=== PATIENT | male | born 1945 | race Caucasian/White ===

== ENCOUNTER 2017-06-27 15:31 | Emergency (ER) | payer MEDICARE ==
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
--- NOTE | 2017-06-27 15:54 | EKG ---
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 POSSIBLY ABNORMAL ECG RI6.01 No previous ECG available for comparison Electronically Signed On 06-28-2017 12:11:21 [employer] by Luke Fitzpatrick
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
[2017-06-27] MEDS ORDERED: HYDR-79 PO (16:26)
[2017-06-27 16:34] VITALS: BP 161/81
== END 2017-06-27 16:30 | disposition home or self-care (01) ==
LOC: ER 15:31
DX: S20.211A Contusion of right front wall of thorax, initial encounter (principal); E11.9 Type 2 diabetes mellitus without complications; I10 Essential (primary) hypertension; E78.00 Pure hypercholesterolemia, unspecified; Z87.442 Personal history of urinary calculi; V49.9XXA Car occupant (driver) (passenger) injured in unspecified traffic accident, initial encounter; Y93.89 Activity, other specified; Y99.8 Other external cause status; Y92.488 Other paved roadways as the place of occurrence of the external cause
CPT/HCPCS: 71046; 93005; 99284

== ENCOUNTER 2018-05-31 10:22 | Emergency (ER) | payer MEDICARE ==
[~2018-05-31] VITALS: Ht 175.3 cm; Wt 77.1 kg
[~2018-05-31 10:22] MED LIST: HYDR-1179 PO
--- NOTE | 2018-05-31 10:54 | RAD ---
FOOT RIGHT 3V History: Foot pain for one hour Comparison: None. Findings: 3 views of the right foot are submitted. There is minimally displaced, mostly horizontally oriented fracture of the proximal fifth metatarsal. This mass or calcification. There are dorsal and plantar calcaneal enthesophytes. Impression: 1. There is fracture of the proximal fifth metatarsal. Electronically signed by: Helder David MD (05/31/2018 10:50 AM) [id number]
[2018-05-31] MEDS ORDERED: ACET-704 PO (11:43)
--- NOTE | 2018-05-31 11:43 | PHYS DOC ---
Past History Past Medical History: Diabetes Past Surgical History: No Surgical History Smoking: Non-smoker Alcohol Use: Rarely Drug Use: None Adult General Chief Complaint Chief Complaint: FOOT INJURY PAIN [facility] HPI Patient is a 73 year old male who presents with injury to right foot. Patient states he was watching TV for a while and then he started to walk had numbness of his foot and lost his balance and twisted his right foot prior to arrival to ER without fall or other injuries. Patient denies current paresthesias or focal weakness and rated his pain as a mild pain. Review of Systems Review of Systems Constitutional: Denies fever or chills [] Eyes: Denies change in visual acuity, redness, or eye pain [] HENT: Denies nasal congestion or sore throat [] Respiratory: Denies cough or shortness of breath [] Cardiovascular: No additional information not addressed in HPI [] GI: Denies abdominal pain, nausea, vomiting, bloody stools or diarrhea [] : Denies dysuria or hematuria [] Musculoskeletal: Denies back pain, reports joint pain [] Integument: Denies rash or skin lesions [] Neurologic: Denies headache, focal weakness or sensory changes [] Endocrine: Denies polyuria or polydipsia [] All other systems were reviewed and found to be within normal limits, except as documented in this note. Allergies Allergies Allergies Coded Allergies Type Severity Reaction Last Updated Verified No Known Drug Allergies 08/06/13 No Physical Exam Physical Exam Constitutional: Well developed, well nourished, no acute distress, non-toxic appearance. [] HENT: Normocephalic, atraumatic Eyes: PERRLA, EOMI, conjunctiva normal, no discharge. [] Neck: Normal range of motion, no tenderness, supple, no stridor. [] Cardiovascular:Heart rate regular rhythm, no murmur [] Lungs & Thorax: Bilateral breath sounds clear to auscultation [] Skin: Warm, dry, no erythema, no rash. [] Back: No tenderness, no CVA tenderness. [] Extremities: Right foot without deformity, contusion and mild ecchymosis and tenderness in proximal fifth metatarsal area without focal neuro deficit Neurologic: Alert and oriented X 3, normal motor function, normal sensory function, no focal deficits noted. [] Psychologic: Affect normal, judgement normal, mood normal. [] Current Patient Data Vital Signs Vital Signs Date Time Temp Pulse Resp B/P (MAP) Pulse Ox O2 Delivery O2 Flow Rate FiO2 05/31/18 10:32 98.3 88 22 99 Room Air EKG EKG [] Radiology/Procedures Radiology/Procedures [address] [address] IMAGING REPORT Signed PATIENT: HEIDI DOBBINS ACCOUNT: [id number] : 1945 LOCATION: ER AGE: 73 SEX: M EXAM STATUS: REG ER ORD. PHYSICIAN: NINA RANGEL MD REASON: injury PROCEDURE: FOOT RIGHT 3V FOOT RIGHT 3V History: Foot pain for one hour Comparison: None. Findings: 3 views of the right foot are submitted. There is minimally displaced, mostly horizontally oriented fracture of the proximal fifth metatarsal. This mass or calcification. There are dorsal and plantar calcaneal enthesophytes. Impression: 1. There is fracture of the proximal fifth metatarsal. Electronically signed by: Anila David MD (05/31/2018 10:50 AM) [facility] DICTATED AND SIGNED BY: ANILA DAVID MD DATE: 05/31/18 1048 CC: NINA RANGEL MD; BRITTANY REGALADO MD ~ Course & Med Decision Making Course & Med Decision Making Pertinent Imaging studies reviewed. (See chart for details) Evaluation of patient in ER showed 73-year-old male patient with injury to right foot and fracture of base of fifth metatarsal. Patient did not want to have the splint in ER. Ortho shoe was given and patient instructed to follow-up with condemnation engineer orthopedic physician. Dragon Disclaimer Dragon Disclaimer This electronic medical record was generated, in whole or in part, using a voice recognition dictation system. Departure Departure: Impression: Primary Impression: Fracture of metatarsal of right foot, closed Disposition: 01 HOME, SELF-CARE (at 1139) Condition: STABLE Referrals: BRITTANY REGALADO MD (PCP) Patient Instructions: Metatarsal Fracture, Undisplaced Additional Instructions: Follow-up with condemnation engineer orthopedic physician Dr. Sanchez, call [phone] to make an appointment Avoid of bearing weight Scripts Acetaminophen With Codeine (TYLENOL WITH CODEINE #3 TABLET) 1 Each Tablet 1 TAB PO Q6HRS for pain, #20 TAB Prov: NINA RANGEL MD 05/31/18 NINA RANGEL MD May 31, 2018 11:43
[2018-05-31 11:49] VITALS: BP 118/81
== END 2018-05-31 11:51 | disposition home or self-care (01) ==
LOC: ER 10:22
DX: S92.351A Displaced fracture of fifth metatarsal bone, right foot, initial encounter for closed fracture (principal); E11.9 Type 2 diabetes mellitus without complications; X50.1XXA Overexertion from prolonged static or awkward postures, initial encounter; Y93.01 Activity, walking, marching and hiking; Y92.89 Other specified places as the place of occurrence of the external cause; Y99.8 Other external cause status
CPT/HCPCS: 73630; 99283

== ENCOUNTER 2018-06-01 05:13 | Emergency (ER) | payer MEDICARE ==
[~2018-06-01] VITALS: Ht 175.3 cm; Wt 77.1 kg
[2018-06-01 05:13] VITALS: BP 164/76
[~2018-06-01 05:13] MED LIST changes: +ACET-704 PO
--- NOTE | 2018-06-01 05:24 | ED.ADGEN ---
Past History Past Medical History: Diabetes Past Surgical History: No Surgical History Smoking: Non-smoker Alcohol Use: Rarely Drug Use: None Adult General Chief Complaint Chief Complaint ".. I was here the other day.. they said I broke my foot.. they wanted me to get a splint....but I did not want one..." HPI HPI Patient is a 73 year old male who presents with Rt. foot fx. 5th proximal metatarsal. Pt. yesterday declined crutches and splint. Did accept fx shoe. Pt. now worried he should have gotten the splint. Pt. advised he would need crutches if he wanted a splint now. Pt. decided to not get the splint, when he realized it would not be a wt. bearing splint.. Pt. stated he would will stick with cast shoe. Pt. has no upper leg tenderness. No significant edema or pain. Reviewed x-rays with pt. Pt. denies peripheral neuropathy with his DM. Review of Systems Review of Systems Constitutional: Denies fever or chills [] Eyes: Denies change in visual acuity, redness, or eye pain [] HENT: Denies nasal congestion or sore throat [] Respiratory: Denies cough or shortness of breath [] Cardiovascular: No additional information not addressed in HPI [] GI: Denies abdominal pain, nausea, vomiting, bloody stools or diarrhea [] : Denies dysuria or hematuria [] Musculoskeletal: Denies back pain or joint pain [] Complaints of Rt. foot pain after twisting it yesterday- 5ht Metatarsal fx. Integument: Denies rash or skin lesions [] Neurologic: Denies headache, focal weakness or sensory changes [] Endocrine: Denies polyuria or polydipsia [] All other systems were reviewed and found to be within normal limits, except as documented in this note. Family History Family History DM Current Medications Current Medications See Nursing for home meds. Allergies Allergies Allergies Coded Allergies Type Severity Reaction Last Updated Verified No Known Drug Allergies 08/06/13 No Physical Exam Physical Exam Constitutional: , no acute distress, non-toxic appearance. [] HENT: Normocephalic, atraumatic, bilateral external ears normal, oropharynx moist, no oral exudates, nose normal. [] Extremities: No tenderness, no cyanosis, no clubbing, ROM intact, no edema. Except finding in Rt. foot. No upper leg tenderness. Neurologic: Alert and oriented X 3, normal motor function, normal sensory function, no focal deficits noted. [] Current Patient Data Vital Signs Vital Signs Date Time Temp Pulse Resp B/P (MAP) Pulse Ox O2 Delivery O2 Flow Rate FiO2 06/01/18 05:13 97.5 70 16 99 Room Air EKG EKG [] Radiology/Procedures Radiology/Procedures Reviewed X-rays 05/31/18[] Course & Med Decision Making Course & Med Decision Making Pertinent Labs and Imaging studies reviewed. (See chart for details) Pt. elects to continue with fx shoe. Declines crutches and OCL splint. Will keep follow up with primary and orthro. Return if any concerns. Ice, elevation, rest. Must follow up. [] Final Impression Final Impression 1. Rt. Fx Foot[]- Proximal 5th Metatarsal. Dragon Disclaimer Dragon Disclaimer This electronic medical record was generated, in whole or in part, using a voice recognition dictation system. Dragon Disclaimer This chart was dictated in whole or in part using Voice Recognition software in a busy, high-work load, and often noisy Emergency Department environment. It may contain unintended and wholly unrecognized errors or omissions. Discharge Summary Visit Information Final Diagnosis Problems Medical Problems: (1) Foot fracture, right Status: Acute Brief Hospital Course Allergies Allergies Coded Allergies Type Severity Reaction Last Updated Verified No Known Drug Allergies 08/06/13 No Vital Signs Vital Signs Date Time Temp Pulse Resp B/P (MAP) Pulse Ox O2 Delivery O2 Flow Rate FiO2 06/01/18 05:13 97.5 70 16 99 Room Air Brief Hospital Course Mr. Hebert is a 73 old male who presented with Rt. 5th Metatarsal fx. Concerned he should gotten a OCL splint yesterday. Pt. decline OCL and crutches today when he found out it would not be a wt. bearing splint. Pt. to keep follow up with orthro and primary. Discharge Information Condition at Discharge: Stable Disposition/Orders: D/C to Home Dischare Medications Active Scripts Active Tylenol With Codeine #3 Tablet (Acetaminophen With Codeine) 1 Each Tablet 1 Tab PO Q6HRS Hydrocodone-Ibuprofen 7.5-200 (Hydrocodone/Ibuprofen) 1 Each Tablet 1 Tab PO PRN Q6HRS PRN KENNETH,LAUREN H MD Jun 01, 2018 05:24
== END 2018-06-01 05:38 | disposition home or self-care (01) ==
LOC: ER 05:13
DX: S92.351D Displaced fracture of fifth metatarsal bone, right foot, subsequent encounter for fracture with routine healing (principal); E11.9 Type 2 diabetes mellitus without complications; X58.XXXD Exposure to other specified factors, subsequent encounter
CPT/HCPCS: 99281

== ENCOUNTER 2018-11-13 09:24 | Emergency (ER) | payer MEDICARE ==
[~2018-11-13] VITALS: Ht 175.3 cm; Wt 86.0 kg
[2018-11-13] MEDS ORDERED: IV NORMAL SALINE 1,000ML 1,000 ML IV SCH (09:46)
[2018-11-13] MEDS ORDERED: TAMSULOSIN 0.4 MG CAP.ER.24H. PO STA (09:46)
--- NOTE | 2018-11-13 09:52 | PHYS DOC ---
Past History Past Medical History: Diabetes Past Surgical History: No Surgical History Smoking: Non-smoker Alcohol Use: Rarely Drug Use: None Adult General Chief Complaint Chief Complaint: FLANK PAIN [facility] HPI Patient is a 73-year-old male who presents with complaint of left-sided flank pain that started on Monday. Patient states that currently pain is about a 6-7 out of 10. He indicates that he has had kidney stones in the past on the right hand side and states that the pain is very similar. He does admit to some nausea but no vomiting. He denies any urinary discomfort. Patient states that he has been taking some Aleve and states that that has helped with the pain.[] Review of Systems Review of Systems Constitutional: Denies fever or chills [] Respiratory: Denies cough or shortness of breath [] Cardiovascular: No additional information not addressed in HPI [] GI: Denies abdominal pain. Admits to nausea without vomiting or diarrhea [] : Denies dysuria or hematuria [] Musculoskeletal: Complains of left-sided back/flank pain [] Integument: Denies rash or skin lesions [] All other systems were reviewed and found to be within normal limits, except as documented in this note. Allergies Allergies Allergies Coded Allergies Type Severity Reaction Last Updated Verified No Known Drug Allergies 08/06/13 No Physical Exam Physical Exam Constitutional: Well developed, well nourished, no acute distress, non-toxic appearance. [] HENT: Normocephalic, atraumatic, bilateral external ears normal, oropharynx moist, no oral exudates, nose normal. [] Eyes: PERRLA, EOMI, conjunctiva normal, no discharge. [] Neck: Normal range of motion, no tenderness, supple, no stridor. [] Cardiovascular:Heart rate regular rhythm, no murmur [] Lungs & Thorax: Bilateral breath sounds clear to auscultation [] Abdomen: Bowel sounds normal, soft, no tenderness. [] Skin: Warm, dry, no erythema, no rash. [] Extremities: No tenderness, no cyanosis, no clubbing, ROM intact. [] Neurologic: Alert and oriented X 3, no focal deficits noted. [] EKG EKG [] Radiology/Procedures Radiology/Procedures [] Impressions: PROCEDURE: CT ABDOMEN PELVIS WO CONTRAST CT Abdomen and Pelvis without contrast History: Left flank pain Technique: Noncontrast CT imaging was performed of the abdomen and pelvis. Multiplanar images are reviewed. Exposure: One or more of the following individualized dose reduction techniques were utilized for this examination: 1. Automated exposure control 2. Adjustment of the mA and/or kV according to patient size 3. Use of iterative reconstruction technique. Comparison: August 06, 2013 Findings: There is again mild left hydroureteronephrosis. There are 2 adjacent calculi near the left ureterovesical junction, largest of these about 6 mm and the other more proximal smaller calculus about 2 mm. 3 to 4 mm calculus was seen near this location previously. There is a small inferior left renal calculus 1 to 2 mm, also small 2 mm more defined superior right renal calculus. There is increased density of the renal pyramids bilaterally as seen previously. There is some strandy change of the perinephric fat greater on the left as seen previously. There is no right hydroureteronephrosis or ureteral calculus. There is some coronary calcification. There is mild linear density lung bases likely fibrotic change as seen previously. Accurate evaluation of abdominal visceral organs is limited without intravenous contrast, no obvious focal abnormality of the liver, spleen, pancreas. There is cholelithiasis. There is no new adrenal nodularity. Accurate evaluation of bowel is limited without oral contrast. Bowel is not significantly dilated. Normal caliber appendix is visualized. There is variable retained stool in the colon. There is no free air. There is fat in the inguinal canals bilaterally greater on the left as seen previously, no internal bowel. There are prostate radiation seeds with associated artifact. There is scattered calcified plaque of the abdominal aorta and minimally of the iliac arteries. There is advanced degenerative disc disease L5-S1, mild spondylosis at this level. Impression: 1. There is mild left hydroureteronephrosis. There are 2 calculi in the left ureterovesical junction as described. There are small renal calculi, also increased density of the renal pyramids as seen previously, may be seen with medullary nephrocalcinosis/medullary sponge kidney. There is again degree of strandy change of the perinephric fat on the left which may be seen with component of forniceal rupture. 2. There is cholelithiasis. Electronically signed by: Anila Sen MD (11/13/2018 10:38 AM) [facility] DICTATED AND SIGNED BY: ANILA SEN MD DATE: 11/13/18 1038 Course & Med Decision Making Course & Med Decision Making Pertinent Labs and Imaging studies reviewed. (See chart for details) [] Lit Disclaimer Lit Disclaimer This electronic medical record was generated, in whole or in part, using a voice recognition dictation system. Departure Departure: Impression: Primary Impression: Ureterolithiasis Disposition: HOME, SELF-CARE Condition: STABLE Referrals: BRITTANY REGALADO MD (PCP) Patient Instructions: Diet for Kidney Stones, Kidney Stones Scripts Tamsulosin Hcl (FLOMAX) 0.4 Mg Cap.er.24h 0.4 MG PO DAILY for kidney stones, #7 CAP.SR Prov: SAMEER PARK Jr. DO 11/13/18 Ondansetron Hcl (ZOFRAN) 4 Mg Tablet 4 MG PO Q6HRS PRN for NAUSEA, #12 TAB Prov: SAMEER PARK Jr. DO 11/13/18 Oxycodone Hcl/Acetaminophen (PERCOCET 7.5-325 MG TABLET ) 1 Each Tablet 1 TAB PO PRN Q6HRS PRN for PAIN, #20 TAB Prov: SAMEER PARK Jr. DO 11/13/18 SAMEER PARK Jr. DO Nov 13, 2018 09:52
[2018-11-13] MEDS ORDERED: KETOROLAC 30 MG/ML VIAL. IV ONE (10:00)
[2018-11-13] MEDS ORDERED: ONDANSETRON PF 4 MG/2 ML VIAL. IV ONE (10:00)
[2018-11-13 10:13] LABS: BASO # 0.1 x10^3/uL (0.0-0.2); BASO % 1 % (0-3); EOS # 0.3 x10^3/uL (0.0-0.7); EOS % 3 % (0-3); HEMATOCRIT 44.1 % (39.0-53.0); HEMOGLOBIN 14.7 g/dL (13.0-17.5); LYMPH # 1.2 x10^3/uL (1.0-4.8); LYMPH % 16 % (24-48); MEAN CORPUSCULAR HEMOGLOBIN 31 pg (25-35); MEAN CORPUSCULAR HGB CONC 33 g/dL (31-37); MEAN CORPUSCULAR VOLUME 94 fL (79-100); MONO # 0.8 x10^3/uL (0.0-1.1); MONO % 11 % (0-9); NEUT # 5.4 x10^3uL (1.8-7.7); NEUT % 70 % (31-73); PLATELET COUNT 152 x10^3/uL (140-400); RED BLOOD COUNT 4.72 x10^6/uL (4.30-5.70); RED CELL DISTRIBUTION WIDTH 13.3 % (11.5-14.5); WHITE BLOOD COUNT 7.7 x10^3/uL (4.0-11.0)
[2018-11-13 10:28] LABS: ALBUMIN/GLOBULIN RATIO 1.2 (1.0-1.7); CALCIUM 9.7 mg/dL (8.5-10.1); CREATININE 2.1 mg/dL (0.7-1.3); GFR 31.2; POTASSIUM 4.4 mmol/L (3.5-5.1); TOTAL BILIRUBIN 1.1 mg/dL (0.2-1.0); TOTAL PROTEIN 7.4 g/dL (6.4-8.2)
[2018-11-13 10:33] LABS: BACTERIA,URINE 0 /HPF (0-FEW); BILIRUBIN,URINE NEG (NEG); CLARITY,URINE CLEAR; COLOR,URINE YELLOW; GLUCOSE,URINE 500 mg/dL (NEG); NITRITE,URINE NEG (NEG); SQUAMOUS EPITHELIAL CELL,UR OCC /LPF; UROBILINOGEN,URINE 1 mg/dL (0.2 mg/dL); WBC,URINE RARE /HPF (0-4)
--- NOTE | 2018-11-13 10:41 | RAD ---
CT Abdomen and Pelvis without contrast History: Left flank pain Technique: Noncontrast CT imaging was performed of the abdomen and pelvis. Multiplanar images are reviewed. Exposure: One or more of the following individualized dose reduction techniques were utilized for this examination: 1. Automated exposure control 2. Adjustment of the mA and/or kV according to patient size 3. Use of iterative reconstruction technique. Comparison: August 06, 2013 Findings: There is again mild left hydroureteronephrosis. There are 2 adjacent calculi near the left ureterovesical junction, largest of these about 6 mm and the other more proximal smaller calculus about 2 mm. 3 to 4 mm calculus was seen near this location previously. There is a small inferior left renal calculus 1 to 2 mm, also small 2 mm more defined superior right renal calculus. There is increased density of the renal pyramids bilaterally as seen previously. There is some strandy change of the perinephric fat greater on the left as seen previously. There is no right hydroureteronephrosis or ureteral calculus. There is some coronary calcification. There is mild linear density lung bases likely fibrotic change as seen previously. Accurate evaluation of abdominal visceral organs is limited without intravenous contrast, no obvious focal abnormality of the liver, spleen, pancreas. There is cholelithiasis. There is no new adrenal nodularity. Accurate evaluation of bowel is limited without oral contrast. Bowel is not significantly dilated. Normal caliber appendix is visualized. There is variable retained stool in the colon. There is no free air. There is fat in the inguinal canals bilaterally greater on the left as seen previously, no internal bowel. There are prostate radiation seeds with associated artifact. There is scattered calcified plaque of the abdominal aorta and minimally of the iliac arteries. There is advanced degenerative disc disease L5-S1, mild spondylosis at this level. Impression: 1. There is mild left hydroureteronephrosis. There are 2 calculi in the left ureterovesical junction as described. There are small renal calculi, also increased density of the renal pyramids as seen previously, may be seen with medullary nephrocalcinosis/medullary sponge kidney. There is again degree of strandy change of the perinephric fat on the left which may be seen with component of forniceal rupture. 2. There is cholelithiasis. Electronically signed by: Helder David MD (11/13/2018 10:38 AM) [facility]
[2018-11-13] MEDS ORDERED: ONDA4TAB7 PO (10:51)
[2018-11-13] MEDS ORDERED: OXYC1TAB19 PO (10:51)
[2018-11-13] MEDS ORDERED: TAMS0.4C97 PO (10:51)
[2018-11-13 11:20] VITALS: BP 150/90
== END 2018-11-13 11:24 | disposition home or self-care (01) ==
LOC: ER 09:24
DX: N13.2 Hydronephrosis with renal and ureteral calculous obstruction (principal); K80.20 Calculus of gallbladder without cholecystitis without obstruction; E11.9 Type 2 diabetes mellitus without complications
CPT/HCPCS: 36415; 74176; 80053; 81001; 85025; 96374; 96375; 99285; J1885; J2405; J7030